=== PATIENT | male | born 1970 | race African-American/Black ===

== ENCOUNTER 2018-11-08 14:22 | Emergency (ER) | payer OTHER ==
[~2018-11-08] VITALS: Ht 175.3 cm; Wt 111.1 kg
[2018-11-08 15:27] VITALS: BP 172/85
[2018-11-08] MEDS ORDERED: NORCO 10-325 T1 EACH PO (16:30)
== END 2018-11-08 16:52 | disposition home or self-care (01) ==
LOC: ER 14:22
DX: M79.671 Pain in right foot (principal)